=== PATIENT | male | born 1975 | race Caucasian/White ===

== ENCOUNTER 2017-11-05 05:50 | Day surgery (SDC) | payer OTHER, BC ==
[2017-10-23 12:21] VITALS: BMI 31.9
[2017-11-05 07:44] LABS: INR 1.1; PROTHROMBIN TIME 12.4 SECONDS (9.7-12.2)
[2017-11-05] MEDS ORDERED: ceFAZolin IV 2 gm in Dextrose 2 GM/50 ML BAG IVPB ONE (08:16)
[2017-11-05] MEDS ORDERED: Bacitracin 50,000 UNIT in Sodium Chloride 0.9% Irrig 1,000 ML IR SCH (09:45)
[2017-11-05] MEDS ORDERED: Midazolam 2 MG/2 ML VIAL ONE (10:14)
[2017-11-05] MEDS ORDERED: Rocuronium 10 mg/ml (5 ml) ONE (10:14)
[2017-11-05] MEDS ORDERED: Propofol 10 mg/ml Inj (20 ML) ONE (10:14)
[2017-11-05] MEDS ORDERED: Neostigmine Methylsulfate 3mg/3ml Syringe IV ONE (12:03)
[2017-11-05] MEDS ORDERED: Oxycodone/Acetaminophen 5/325 mg Tab PO PRN ×2 (12:44)
[2017-11-05] MEDS ORDERED: HYDROmorphone 0.5 mg/0.5 ml ISec ONE (13:05)
[2017-11-05] MEDS: HYDROmorphone 0.5 mg/0.5 ml ISec IVP PRN ×4 (13:05→15:15)
[2017-11-05] MEDS ORDERED: Bupivacaine 0.25% Inj(30mL) IJ ONE (13:19)
--- NOTE | 2017-11-05 14:01 | PCM.ANESB7 ---
Adductor Canal Block - Adductor Canal Block Date of Procedure: 11/05/17 Anesthiologist: Dean Pre-Procedure Diagnosis: Right meniscus tear Post-Procedure Diagnosis: Right meniscus tear Procedure Performed: Adductor Canal Block Right - Procedure Adductor Canal Block: The procedure was explained to the patient that it is for the post-operative pain management. Consent was obtained after a thorough discussion with the patient regarding the benefits and possible complications of local anesthetic adductor canal block of the femoral nerve. Standard monitors, as defined by the ASA, were applied to the patient. Time-out was held with the circulating nurse to confirm the appropriate block. After applying supplemental oxygen and administering IV Sedation as needed, the patient was placed in supine position with and the operative leg was flexed slightly at the knee and externally rotated as needed, and was kept anatomically stable. The mid-thigh of the _ right__ lower extremity was exposed. The ultrasound transducer was then applied transversely along the medial aspect, about midway down the thigh and the femoral artery and vein were identified in appropriate relation with the sartorius muscle. At this time, the femoral nerve was visualized lateral to the femoral artery within the canal. After thorough identification, this area area was prepped with Chloroprep solution three times and 1 % Lidocaine was injected subcutaneously for topical anesthesia. At this point, a #22 gauge Stimuplex 4-inch needle was inserted in-plane in a [id number] orientation, and advanced toward the femoral nerve. Advancement was performed carefully under direct ultrasound visualization. After negative aspiration, 20_cc of 0.25% __bupivicaine__was injected.. Under ultrasound guidance the local anesthetics were observed spreading around the femoral nerve. The needle was removed intact and sterile dressing was applied. The patient had stable vital signs, was conscious and in no apparent distress. The patient tolerated the femoral nerve block well with stable vital signs and was prepared for subsequent surgery
[2017-11-05 16:18] VITALS: RESP 18
[2017-11-05 18:42] VITALS: BP 131/78; PULSE 75; TEMP 98.8; O2SAT 98
--- NOTE | 2017-11-12 15:43 | PCM.SURG1 ---
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 #2 medial meniscal tear. #3 chondromalacia. 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 #2 medial meniscal tear (peripheral tear/ menisco-capsular seperation and complex free-edge tear). #3 lateral meniscal tear (peripheral tear/ menisco-capsular seperation and complex free-edge tear). #4 chondromalacia/ grade 3 chondral injury MFC/lateral tibial plteau. #5 synovitis in all 3 compartments. #6 hypertorphic / inflamed fat pad. 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 #2 medial meniscal tear (peripheral tear/ menisco- capsular seperation and complex free-edge tear). #3 lateral meniscal tear ( peripheral tear/ menisco-capsular seperation and complex free-edge tear). #4 chondromalacia/ grade 3 chondral injury MFC/lateral tibial plteau. #5 synovitis in all 3 compartments. #6 hypertorphic / inflamed fat pad. #7 symptomatic medial & lateral plica bands Operation Performed: Right knee: #1 Open I&D medial soft tissue collection/ Perry-Fransico lesion. #2 Open biopsy medial soft tissue mass/ Perry- Fransico lesion. #3 Arthroscopic all inside medial meniscus repair. #4 Arthroscopic all inside lateral meniscus repair. #5 Arthroscopic chondroplasty lateral tibial plateau/ MFC/Trochlea. #6 Arthroscopic extensive synovectomy all 3 compartments (including synovectomy/ resection of lateral and medial plica bands/ debridement hypertorphic fat pad). #7 Arthroscopic intra- articular PRP injection Specimen/Specimens Removed: specimen= none. complications= none. Implants= [employer] meniscal repair sequent system, 4 imlants for LMR, 8 implnats for MMR, 3 kits opened in total Estimated Blood Loss: EBL {In ML}: 10 Blood Products Given: N/A Drains Used: No Drains Post-Op Condition: Good Date of Surgery/Procedure: 11/05/17 Time of Surgery/Procedure: 12:00
--- NOTE | 2017-12-27 10:04 | OP ---
PROCEDURE DATE: 11/05/2017 PREOPERATIVE DIAGNOSES: Right knee: 1. 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 2. Medial meniscal tear. 3. Chondromalacia. 4. Synovitis. 5. Hypertrophic and inflamed fat pad causing anterior impingement. 6. Grade 2 medial collateral ligament tear. POSTOPERATIVE DIAGNOSES: Right knee: 1. 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 2. Medial meniscal tear (peripheral tear/meniscal capsule separation and complex free edge tear). 3. Lateral meniscal tear (complex free edge tear from posterior horn and the anterior horn that was not repairable, meniscal capsular separation/hypermobility, that was amendable to stabilization). 4. 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 5. Significant inflamed synovitis in all 3 compartments. 6. Hypertrophic/inflamed fat pad causing anterior impingement. 7. Symptomatic medial and lateral plica bands. 8. Grade 2 medial collateral ligament tear. PROCEDURES: Right knee: 1. Open irrigation and debridement, medial soft tissue, expanding collection/hematoma/Turner-Fransico lesion. 2. Open biopsy of medial soft tissue mass/Turner-Fransico lesion. 3. Arthroscopic all inside medial meniscus repair. 4. Arthroscopic partial lateral meniscotomy and stabilization. 5. Arthroscopic chondroplasty, lateral tibial plateau/medial femoral condyle/trochlea. 6. Arthroscopic extensive synovectomy, all 3 compartments. 7. Arthroscopic resection and debridement of lateral and medial plica bands. 8. Arthroscopic debridement and resection of hypertrophic fat pad. 9. Arthroscopic intraarticular platelet-rich plasma injection. SURGEON: Jhony Willams MD BEAUTY SALES ADVISOR: William Lowery DPM, first year podiatry resident. ANESTHESIA: General endotracheal anesthesia with a postop regional nerve block placed by anesthesia staff in PACU. SPECIMEN: Biopsy of Turner-Fransico lesion sent to pathology x1, cultures x3 sent to microbiology as well as AFB and fungus x1 sent to microbiology. COMPLICATIONS: None. TOURNIQUET TIME: 0 minutes. ESTIMATED BLOOD LOSS: 10 mL. DRAINS: None. DISPOSITION: The patient was extubated and transferred to PACU in stable condition and tolerated the procedure well. IMPLANTS: [employer] meniscal repair sequent system with 12 implants placed in total, 8 implants used for medial meniscus all inside repair, 4 implants used for stabilization of lateral meniscus, all-in-all 3 kits opened in total. INDICATIONS FOR SURGERY: The patient is a 41-year-old male with a past medical history significant for hypertension and type 2 diabetes, who presented to the office for the first time under my care with right knee pain on 10/25/2017. This is a [place] worker's comp case with a date of injury of 10/07/2017. 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 After his right knee and legs struck the rebar, he developed immediate 10/10 pain, localized to the medial aspect of the right knee and proximal leg. He had difficulty with ambulation. On that same day, he went to an urgent care in [facility] on 10/07/2017 where he was told he might have contusions and sprains. He was referred for an MRI initially, that was done at [facility] in [place] on 10/20/2017 that was read as, 1. Findings compatible with a small Turner-Fransico lesion along the proximal medial tibia over the MCL. 2. Mild medial and mild patellofemoral compartment arthrosis/chondromalacia. 3. Findings that can be associated with patellar maltracking. 4. Mild quadriceps tendinosis. On examination in the office, he had evidence of MCL instability with grade 2 MCL opening/tearing, positive medial and lateral Rafael with what appeared to be medial and lateral meniscus tears clinically, synovitis and fat pad inflammation. He also had a 3 cm mass/fluid collection at the medial aspect of the medial tibial plateau overlying the MCL with skin intact and no warmth and no erythema. There was moderate suspicion of infection. He was placed in a Neoprene hinge knee brace initially to treat his injury conservatively and allow everything to heal without surgery. As he came in for followup visits, I noticed that the medial lesion was expanding, and a repeat stat MRI was done at [facility] on 10/29/2017, which was read as: 1. Enlarging Turner-Fransico lesion along the medial aspect of the tibia proximally, now measuring up to 7.4 cm in its maximum craniocaudal dimension. 2. Findings suggesting excessive lateral patellar pressure syndrome, mild tendinosis of the distal quadriceps tendon with an associated quadriceps fat pad impingement syndrome. 3. Chondromalacia in all 3 compartments. On my review of the MRI, there was definite signal change of the medial and lateral meniscus, but the medial meniscus exhibited definite meniscal capsular separation. With this expanding/enlarging Turner-Fransico lesion that grew significantly from 3 cm to 7 cm over the course of 1 week. He was indicative for surgery. He also had the intraarticular findings and clinically presented with meniscus tears. To determine the degree of contribution of intraarticular pain generator and the benefit of undergoing arthroscopic surgery under the same anesthesia setting, I injected his knee in the office on 11/02/2017 with lidocaine and Marcaine mixture. Immediately after the injection, the patient reported that he had almost 65% to 70% improvement in pain confirming an intraarticular component to his pain generator. He also reported resolution of medial and lateral joint line pain and the ability to fully extend without fat pad pain. I also discussed with him the potential benefits of aspirating the Turner-Fransico lesion with a large gauge needle in the office to which he was adamantly against and expressed that he has a severe phobia to needles. After reviewing his case with him as well as the repeat MRI in this clinical presentation with the expanding lesion and his developing finding of developing numbness at the skin overlying the lesion, he was indicative for urgent surgery. He was indicative for surgery consisting of right knee open irrigation and debridement of the Turner-Fransico lesion and acquisition of biopsy and culture from the lesion, arthroscopic meniscus repair/partial meniscectomy, chondroplasty/microfracture, synovectomy/debridement in all related indicative procedures. The risks, benefits, and alternatives to the procedure were discussed at length with the patient with the risks, including, but not limited to infection, neurovascular damage, need for further surgery, failure of repair, chondrolysis, development of chronic pain and disability, inability to return to work, or preinjury level of activity and sports, development of blood clots including DVT and PE, anesthesia reactions including . After answering all of his questions in his [place] language of [place] for which I am fluent, he agreed and accepted the risks and wished to proceed with surgery. He watched surgical animation videos and diagnosis animation videos, and stated that he had a good understanding of the procedures as well as the diagnoses. I reviewed at length with him the postoperative rehabilitation protocol after surgery that he is to follow, and he stated that he understood the need for compliance with the rehab protocol in order to maximize the chance of having a successful outcome after surgery. He was referred to his primary care physician, Dr. Charlene Enriquez for a preadmission testing and preoperative medical clearance, and the procedure was scheduled at [facility] 11/05/2017. We were able to successfully obtain urgent authorization for surgery from [facility] as well. PROCEDURE IN DETAIL: The patient was identified in the preoperative holding area, and the right knee was marked for surgery. Once again as described above, the risks, benefits, and alternatives to the procedure were discussed at length with the patient, and inform consent was obtained in his [place] language of [place] for which I am fluent. After a brief discussion with anesthesia staff, the patient was taken to the operating room, and placed on the well-padded operating room table with all bony prominences and superficial neurovascular structures well-padded. An initial time-out was done with the surgeon, anesthesia staff, and OR staff, all in agreement with the patient. Procedure being done, and extremity being operated on. Perioperative IV antibiotics were administered in the form of 2 g Ancef. General anesthesia was administered without difficulty or complication. Examination under anesthesia was then carried out. Examination under anesthesia: Right knee with large expanding lesion along the medial aspect of the medial tibial plateau overlying the MCL, measuring approximately 7 cm from caudal to cranial and 5 cm from anterior to posterior with no warmth, no erythema, and overlying skin intact, no fluctuance. Knee with full range of motion compared to contralateral knee, significant MCL instability with 2+ opening of the medial joint line at 30 degrees valgus stress, rest of the knee was stable with negative anterior jaw, negative posterior jaw, negative Kole, negative reverse Kole, negative opening to lateral joint line at 0 and 30 degrees varus stress, negative opening to medial joint line at 0 degrees of valgus stress, patella with normal tracking with a reproducible click at the inferior medial and inferior lateral aspects of the patella retinaculum representing symptomatic medial plica bands. Continuation of procedure: The right lower extremity was prepped and draped in a standard sterile fashion after a tourniquet was placed high in the right thigh, but never inflated. A final time-out was done with the surgeon, anesthesia staff, OR staff, all in agreement with the patient, procedure being done, and extremity being operated on. We started the procedure with the open irrigation and debridement and acquisition of biopsy and cultures of the medial Turner-Fransico lesion. A 3 cm incision was made directly over the central aspect of the mass. An incision was made through the skin down to the subcutaneous tissue. We will maintain good hemostasis down to the level of the capsule surrounding the lesion. Using blunt instruments, we were able to separate the capsule from the surrounding soft tissue and work around this lesion and maintain its integrity until it was fully removed. Once we got to the stock and the stock was severed from its connection with the MCL. At that point, the lesion started to leak, and at that point, I obtained the specimens that we needed for cultures x3, AFB, and fungus to send to microbiology from the fluid within the lesion after it was opened. The surrounding capsule of the lesion was sent to pathology for evaluation. The wound was copiously irrigated after the biopsies were obtained. Once it was felt that the entire lesion was removed and resected and there was no remnant pathologic tissue, the wound was copiously irrigated. The tissue was re-approximated with #1 Vicryl sutures followed by subcutaneus tissue, re-approximated with 2-0 Vicryl suture followed by 3-0 Monocryl for skin. All-in-all, approximately 3 L of fluid was used to irrigate the site of the lesion. Once the wound was closed for the open I and D, we then turned our attention to the arthroscopic portion of the procedure. A 50 mL normal saline was used to insufflate the knee joints. Anterolateral portal was created with stab incision through the skin, down to subcutaneous tissues, down to the level of the capsule. Arthroscopic trocar and blunt cannula were inserted into the suprapatellar pouch, and the arthroscopic camera was inserted with insufflation of arthroscopic fluid. With the use of spinal needle localization, anteromedial portal was created with stab incision through the skin down to subcutaneous tissues down to the level of capsule, and an accessory cannula was inserted into anteromedial portal. Knee joint was then copiously irrigated to remove any synovial debris for better visualization. At that point in time, we proceeded with diagnostic arthroscopies. DIAGNOSTIC ARTHROSCOPY: Attention was first turned towards the suprapatellar pouch where there was no evidence of adhesions or loose bodies. The attention was then turned towards the patella femoral joint where immediately seen was grade 2 to 3 chondromalacia of the patella and trochlea with no full thickness component and no exposed subchondral bone, just fibrillation and some free flaps of chondral injury. At the inferior aspect of the patellofemoral joint, there was a hypertropic inflamed fat pad tissue and hypertropic synovial tissue causing impingement between the patella and the trochlea at the patellofemoral joint. The patella was well seated. There was no evidence of lateral maltracking. Attention was then turned towards the medial gutter where immediately seen was a thickened hypertropic medial plica band. Attention was then turned towards the medial compartment, where there was grade 2 to 3 chondromalacia at the weightbearing aspect of the medial femoral condyle with no full thickness defect seen with intact medial tibial plateau cartilage, and after careful evaluation of the medial meniscus, there was indeed a peripheral large tear measuring 3 cm with meniscocapsular separation of the posterior horns and the posterior medial capsule of the knee. Attention was then turned towards the notch intact where PCL and ACL were seen. Attention was then turned towards the lateral compartment where intact lateral femoral condyle articular cartilage was seen. The lateral tibial plateau exhibited a free flap of cartilage down to grade 3 chondromalacia with no full thickness injury and no exposed subchondral bone. The lateral meniscus exhibited free edge white zone tearing throughout the posterior horn to the anterior horn, that was irreparable. The anterior horn also exhibited significant fibrillation and complex tearing that was irreparable. On careful evaluation of the posterior horn of the lateral meniscus to a significant hypermobility with ability to sublux the posterior horn beyond the midpoint of the lateral femoral condyle with associated meniscocapsular separation from the posterior lateral capsule. ARTHROSCOPIC EXTENSIVE SYNOVECTOMY: With the use of arthroscopic radiofrequency ablation and arthroscopic shaver, an extensive synovectomy and debridement was carried out in all 3 compartments. This included a 3-compartment synovectomy, debridement and resection of medial and lateral plica bands, debridement and resection of the hypertrophic fat pad that was inflamed causing anterior impingement. This was beyond what is considered usual and customary for better visualization during arthroscopic surgery of the knee, and indeed a significant amount of surgical time was dedicated towards this extensive synovectomy of all 3 compartments. Once good hemostasis was achieved, we then turned our attention to the lateral compartments. ARTHROSCOPIC PARTIAL LATERAL MENISCECTOMY: As stated before, the lateral meniscus exhibited 2 main zones of injury. There was complex tearing at the white leg zone, starting at the posterior horn and extending anteriorly to the anterior horn as well as fibrillation and complex tearing at the superior aspect of the anterior horn with both injuries being irreparable. There was also the hypermobility/meniscocapsular separation that was amendable to stabilization/repair. With the use of arthroscopic shaver, radiofrequency ablation, meniscal biters, a partial lateral meniscectomy was carried out establishing a smooth contour and removing the unstable meniscal fragments and complex tearing. This resulted all-in-all overall of resection of approximately 15% to 20% of the lateral meniscus. Good joint preservation technique was employed, and we attempted to preserve as much of the lateral meniscus as possible. To continue good joint preservation technique, we decided to stabilize the lateral meniscus posterior horn and treat the hypermobility. With the use of the [employer] all-inside meniscal repair system, 4 implants were placed just anterior to the popliteal hiatus with care taken not to involve the popliteal tendon with the repair construct. Four implants were placed with good capsular-sided fixation resulting in 3 vertical mattress sutures providing good stability to the posterior horn to the lateral meniscus and re-approximating it and securing it to the posterior lateral capsule of the knee. The construct was tested, and the posterior horn was tested with the arthroscopic probe, and a deep stability had been restored with no evidence of hypermobility seen. The hope of providing this stability to the lateral meniscus was to preserve the lateral meniscus from any future injury that can be attributed to the hypermobility. ARTHROSCOPIC CHONDROPLASTY OF LATERAL TIBIAL PLATEAU, TROCHLEA, AND PATELLA, MEDIAL FEMORAL CONDYLE: As stated before in the lateral compartment, there was a large cartilage flap tear of the lateral tibial plateau down to grade 3 injury with no full thickness defect seen. With the use of arthroscopic shaver and radiofrequency ablation, a chondroplasty was carried out starting with a lateral tibial plateau large flap tear, establishing a smooth contour and removing the unstable cartilage fragments and flap. Once this was carried out to satisfaction, we then turned out attention to chondroplasty of the trochlea and patella removing the fibrillated cartilage and establishing the smooth contour while maintaining good hemostasis. Medial femoral condyle also exhibited grade 3 to 2 chondromalacia at the weightbearing aspect with no full thickness defect seen. This was also treated with chondroplasty using the arthroscopic shaver and radiofrequency ablation, establishing a smooth contour to the medial femoral condyle articular surface. ARTHROSCOPIC MEDIAL MENISCAL REPAIR: Medial meniscus exhibited a large meniscocapsular separation/peripheral tear in the red-red zone of the posterior medial aspect of the posterior horn and posterior medial capsule. There was also a secondary small complex free edge tear that was irreparable starting at the posterior horn extending to the mid body. With the use of meniscal biters, radiofrequency ablation, arthroscopic shaver, a partial medial meniscotomy was carried out removing approximately 2 % of the medial meniscus over all establishing a smooth contour to the free edge of the white-white zone of medial meniscus. With the use of the [employer] all-inside meniscal repair system and all-inside medial meniscus repair was carried out successfully. Four implants were placed at the anterior aspect of the tear and the superior aspect of the medial meniscus with good capsular-sided fixation resulting in 3 alternating horizontal and vertical mattress sutures securing and reducing the posterior horns to the posterior medial capsule successfully. This was repeated again with placement of 4 more implants working posteriorly along the tear at the superior aspect of the medial meniscus with good re-approximation of repair achieved and stability achieved. This was then repeated on the inferior aspect at the tear to restore hoop stressors with 4 more implants for a total of 12 implants for the medial meniscus repair with minimal partial medial meniscotomy to be carried out. With the use of arthroscopic probe, the repair was tested, and indeed, there was no evidence of instability and the tear was secured with inability to pass the probe at the posterior medial corner of the medial meniscus. At that point in time, final imaging was taken and the extensive synovectomy and debridement was completed while maintaining good hemostasis in all 3 compartments. ARTHROSCOPIC INTRAARTICULAR PLATELET-RICH PLASMA INJECTION: With the help of anesthesia staff, 5 mL of PRPs were obtained from a peripheral venous stick of 15 mL, the blood was drawn by anesthesia staff and then spun in the centrifuge, resulting in 5 mL of PRP. The 5 mL of PRP were injected in an intraarticular position in its entirety. Arthroscopic portals were then re-approximated with 2-0 Vicryl suture for subcutaneous tissue, followed by 3-0 Monocryl suture for skin. Sterile dressings were applied to the open I and D wound as well as the arthroscopic portals. Sterile cast padding was then placed from the toes up to the superior thigh, followed by layer of compressive GAVIOTA wrap from the toes up to the superior thigh. The knee was then fitted and placed in a postoperative hinge knee brace locked at 0 degrees extension provided by my office. The brace is of medical necessity to protect the medial meniscus repair and to maximize the chances of successful outcome after surgery and healing of the MCL as well. Decision had been made to proceed with conservative treatment of the MCL tear which could require stabilization in a large postop hinge knee brace as well for at least 6 weeks to allow or just scar in. JUSTIFICATION FOR CODING AND BILLIN. An all-inside medial meniscus repair was carried out with minimal resection of meniscal tissue, and therefore, medial meniscus repair was coded and billed. 2. An arthroscopic partial lateral meniscectomy was carried out, removing almost 20% of the lateral meniscus and providing stabilization as the method of joint preservation to preserve the remaining posterior horn of lateral meniscus tissue. As the main stay of treatment was partial lateral meniscectomy, therefore partial lateral meniscectomy was coded and billed. 3. Extensive synovectomy in all 3 compartments was carried out successfully, which was beyond what is usual and customary just for better visualization during arthroscopic surgery with an extensive synovectomy requiring significant surgical time, including synovectomy of all 3 compartments, resection of debridement of hypertrophic fat pad causing anterior impingement, resection of debridement of medial and lateral symptomatic plica bands. Extensive synovectomy was coded and billed. 4. Arthroscopic chondroplasty of the lateral tibial plateau, trochlea, and patella, medial femoral condyle was carried out successfully, establishing a smooth contour, and therefore, chondroplasty was coded and billed. 5. Open irrigation and debridement of the Turner-Fransico lesion was carried out as an independent part of the procedure, and therefore was coded and billed. 6. Open biopsy of the lesion was also carried out as specimen was sent to pathology and microbiology, and therefore, biopsy of the lesion was coded and billed. 7. Intraarticular PRP injection was placed at the end of the procedure to help maximize meniscal healing, and therefore was coded and billed. 8. A postoperative hinged knee brace was placed and fitted on the patient out of medical necessity at the end of the procedure, and therefore was coded and billed as it was provided by my office. The brace was of medical necessity to maximize the chances of successful medial meniscal repair and lateral meniscus stabilization healing as well as conservative treatment of the MCL partial tear. DISPOSITION: The patient was extubated and transferred to PACU in stable condition and tolerated the procedure well. He will be discharged to home once he is recovered from anesthesia. He can be weightbearing as tolerated to the right lower extremity with the brace locked at 0 degrees extension at all times. He is instructed to keep the dressings clean, dry, and intact until he follows up in the office next week. He already has an appointment with [facility] for his postop visit next week. He has been given prescription for Percocet for pain control. He has been given prescription for Lovenox for his DVT prophylaxis for 2 weeks, starting postoperative day #1. He will contact me direct with any questions or concerns. Jhony Willams MD
== END 2017-11-05 18:42 | disposition home or self-care (01) ==
LOC: C.SDS 05:50
PROVIDERS: ATTEND Student in an Organized Health Care Education/Training Program
DX: S83.231D Complex tear of medial meniscus, current injury, right knee, subsequent encounter (principal); M67.861 Other specified disorders of synovium, right knee; M94.261 Chondromalacia, right knee; S80.01XD Contusion of right knee, subsequent encounter
CPT/HCPCS: 20610; 27613; 29876; 29880; 29883; 36415; 82948; 85610; 85730; 87015; 87070; 87101; 87116; 87206; 88304; 97116; 97161; C1751; G8978; G8979; G8980; J0131; J0171; J0690; J1170; J1885; J2001; J2250; J2405; J2704; J2710; J2765; J3010